=== PATIENT | female | born 1965 | race Caucasian/White ===

== ENCOUNTER 2017-09-20 12:54 | Emergency (ER) | payer BC ==
[~2017-09-20] VITALS: Ht 170.2 cm; Wt 56.7 kg
--- NOTE | 2017-09-20 13:00 | NUR ---
AAOX3, CAME TO ER C/O EYEBROW LACERATION S/P FALL WHILE SKATING, NO KO. C/O HEADACHE. UP TO DATE WITH TETANUS SHOT. RR IS EVEN AND UNLABORED WITH NAD NOTED. SKIN IS WARM AND DRY. AWAITING MD FOR EVAL.
[2017-09-20] MEDS ORDERED: LIDOCAINE 1%-EPI 1:100,000 20 ML VIAL ONE (13:17)
[2017-09-20] MEDS ORDERED: TDAP [DIPH/PERTUSSIS/TET] 0.5 ML VIAL IM ONE ×2 (13:30→13:39)
[2017-09-20] MEDS ORDERED: LIDOCAINE 1%-EPI 1:100,000 50 ML VIAL IJ ONE (13:30)
--- NOTE | 2017-09-20 13:44 | NUR ---
LILIA GREENBERG LOT #:[id number] EXP:08/05/19
[2017-09-20 14:06] VITALS: BP 102/78
--- NOTE | 2017-09-20 14:06 | NUR ---
Patient discharged to home in stable condition. Written and verbal after care instructions given. Patient verbalizes understanding of instruction.
== END 2017-09-20 14:07 | disposition home or self-care (01) ==
LOC: ER 12:58
DX: S01.81XA Laceration without foreign body of other part of head, initial encounter (principal); W01.198A Fall on same level from slipping, tripping and stumbling with subsequent striking against other object, initial encounter; Y93.89 Activity, other specified; Y92.89 Other specified places as the place of occurrence of the external cause; Y99.8 Other external cause status
CPT/HCPCS: 90715; A4606; A6402; J3490; Z7610